=== PATIENT | male | born 1965 | race Caucasian/White ===

== ENCOUNTER 2019-10-25 11:35 | Emergency (ER) | payer MEDICARE, MEDICAID ==
[~2019-10-25] VITALS: Ht 185.4 cm; Wt 84.6 kg
--- NOTE | 2019-10-25 12:00 | NUR ---
PT IS ACCOMPANIED BY FRIEND. CAME IN CO OF "I AM SEVERELY DEPRESSED AND I CANT STOP DRINKING ALCOHOL. IF I DONT GET HELP SOON I AM GOING TO DRINK MYSELF TO . I WANT TO GET INTO A [facility]". HASNT TAKEN MEDICATION FOR DEPRESSION IN 10 DAYS. PT STATES HE HASNT BEEN EATING VERY MUCH. PT IS IN HOSPITAL BED. CALL LIGHT WITHIN REACH
[2019-10-25 12:26] LABS: BASOPHILS # (AUTO) 0.04 x10^3/uL (0-0.1); BASOPHILS % (AUTO) 0 % (0-1); EOSINOPHILS # (AUTO) 0.12 x10^3/uL (0-0.4); EOSINOPHILS % (AUTO) 1 % (1-7); LYMPHOCYTES # (AUTO) 3.17 x10^3/uL (1-3.4); LYMPHOCYTES % (AUTO) 30 % (22-44); MD NO; MEAN CORPUSCULAR HEMOGLOBIN 30.6 pg (27.5-34.5); MEAN CORPUSCULAR HGB CONC 33.3 g/dL (33.2-36.2); MEAN CORPUSCULAR VOLUME 91.9 fL (81-97); MEAN PLATELET VOLUME 7.4 fL (7.4-10.4); MONOCYTES % (AUTO) 6 % (2-9); NEUTROPHILS # (AUTO) 6.69 x10^3/uL (1.8-6.8); NEUTROPHILS % (AUTO) 63 % (42-75); PLATELET COUNT 297 x10^3/uL (130-400); RED BLOOD COUNT 4.85 x10^6/uL (4.38-5.82); RED CELL DISTRIBUTION WIDTH 14.3 % (9.4-14.8)
[2019-10-25] MEDS ORDERED: ONDANSETRON ODT 4 MG PO ONE (12:30)
[2019-10-25] MEDS ORDERED: ONDANSETRON ODT 4 MG ONE (12:32)
[2019-10-25 12:36] LABS: ALANINE AMINOTRANSFERASE 31 U/L (12-78); ALBUMIN 3.5 g/dL (3.4-5.0); ANION GAP 12 mmol/L (5-15); CALCIUM 8.9 mg/dL (8.5-10.1); CHLORIDE 107 mmol/L (98-107); CREATININE 1.15 mg/dL (0.7-1.3)
[2019-10-25 12:38] LABS: ALKALINE PHOSPHATASE 143 U/L (45-117); BILIRUBIN,TOTAL 0.8 mg/dL (0.2-1.0); TOTAL PROTEIN 8.1 g/dL (6.4-8.2)
--- NOTE | 2019-10-25 12:43 | NUR ---
THROUGHPUT RN: ELOY, PSYCH CLIENT EXECUTIVE MADE AWARE OF PT.
[2019-10-25 12:46] LABS: SALICYLATE LEVEL < 1.7 mg/dL (2.8-20.0)
[2019-10-25 12:57] VITALS: BP 127/88
[2019-10-25 13:54] LABS: AMPHETAMINE SCREEN, URINE Negative (Negative); BARBITURATE SCREEN, URINE Negative (Negative); BENZODIAZEPINE SCREEN, URINE Negative (Negative); CANNABINOID SCREEN, URINE Negative (Negative); COCAINE SCREEN, URINE Negative (Negative); METHADONE SCREEN, URINE Negative (Negative); OPIATE SCREEN, URINE Positive (Negative)
--- NOTE | 2019-10-25 15:35 | NUR ---
PRECEPTOR NOTE: PT TO BE ADMITTED TO [facility] ONCE ROOM IS AVAILABLE. CLARITZA BARTLETT AWARE OF PT NOT NEEDING TO BE SOBER TO BE AD[facility]ED [facility].
--- NOTE | 2019-10-25 15:50 | NUR ---
THROUGHPUT RN: CLARITZA FROM [facility] AT BEDSIDE INITIATING ADMIT.
[2019-10-25] MEDS ORDERED: ARIPIPRAZOLE 10 MG TABLET ONE (15:55)
[2019-10-25] MEDS ORDERED: ARIPIPRAZOLE 10 MG TABLET PO ONE (16:00)
[2019-10-25] MEDS ORDERED: ZOLP5TAB PO (17:21)
[2019-10-25] MEDS ORDERED: FLUO20CA19 PO (17:22)
[2019-10-25] MEDS ORDERED: CLON2TAB9 PO (17:23)
[2019-10-26] MEDS ORDERED: ARIPIPRAZOLE 10 MG TABLET PO SCH (09:00)
[2019-10-28] MEDS ORDERED: ACAM333T7 PO (13:06)
[2019-10-28] MEDS ORDERED: DULO30CA2 PO (13:06)
[2019-10-28] MEDS ORDERED: QUET25TA7 PO (13:06)
[2019-10-28] MEDS ORDERED: NICO-485 TD (13:06)
== END 2019-10-26 09:16 | disposition home or self-care (01) ==
LOC: ED 12:21 → UNDOADMIN 16:05 → 3E 16:05 → ED 10-26 09:16
DX: F32.9 Major depressive disorder, single episode, unspecified (principal); F10.120 Alcohol abuse with intoxication, uncomplicated; F17.200 Nicotine dependence, unspecified, uncomplicated; Y90.9 Presence of alcohol in blood, level not specified
CPT/HCPCS: 36415; 80053; 80307; 85025; 93005; 99284; Q0162

== ENCOUNTER 2021-06-23 19:38 | Emergency (ER) | payer MEDICAID, MEDICARE ==
[~2021-06-23] VITALS: Ht 185.4 cm; Wt 91.9 kg
[~2021-06-23 19:38] MED LIST: ACAM333T7 PO; CLON2TAB9 PO; DULO30CA2 PO; FLUO20CA19 PO; NICO-485 TD; QUET25TA7 PO; ZOLP5TAB PO
[2021-06-23] MEDS ORDERED: PROPARACAINE OPHTH 0.5%, 15ML EACHEYE ONE (20:30)
[2021-06-23] MEDS ORDERED: FLUORESCEIN OPHTHALMIC 1 MG STRIP EACHEYE ONE (20:30)
--- NOTE | 2021-06-23 22:05 | NUR ---
support representative: patient to room from lobby.
--- NOTE | 2021-06-23 22:18 | NUR ---
Patient reports waking up last night at approx 0300 feeling like something was in his left eye. He was able to go back to sleep, but woke up later still feeling like something was in his left eye. Patient reports he has flushed his eye with saline with no results. Left eye is swollen and red, pain 3/10
[2021-06-23] MEDS ORDERED: FLUORESCEIN OPHTHALMIC 1 MG STRIP ONE (22:27)
[2021-06-23] MEDS ORDERED: ONDANSETRON ODT 8 MG ONE (22:27)
[2021-06-23] MEDS ORDERED: PROPARACAINE OPHTH 0.5%, 15ML ONE (22:28)
[2021-06-23 22:57] VITALS: BP 137/94
--- NOTE | 2021-06-23 23:00 | NUR ---
Patient is resting comfortably in bed. Bed in lowest, rails engaged, call light on lap. Lights turned off per patient request. [facility].
--- NOTE | 2021-06-23 23:44 | NUR ---
patient taken for vision test, and ambulated back to his room
[2021-06-24] MEDS ORDERED: ERYTHROMYCIN OPHTH 0.5%, 1GM LEFTEYE ONE
--- NOTE | 2021-06-24 00:11 | NUR ---
Patient given discharge instructions and they have confirmed that they understand the instructions. Patient ambulatory with steady gait. NAD, all questions answered appropriately, denies additional needs at this time. No personal belongings left in room after discharge.
== END 2021-06-24 00:13 | disposition home or self-care (01) ==
LOC: ED 20:08
DX: H16.012 Central corneal ulcer, left eye (principal); F17.200 Nicotine dependence, unspecified, uncomplicated
CPT/HCPCS: 99283